=== PATIENT | female | born 1950 | race Caucasian/White ===

== ENCOUNTER → 2019-07-10 13:40 | Outpatient (CLI) | payer OTHER, SELFPAY ==
--- NOTE | 2019-07-10 | DI.MRI.S_ITS ---
PROCEDURE: MR LUMBAR SPINE WO CON INDICATIONS: Radiculopathy, lumbar region TECHNIQUE: Noncontrast sagittal T1 spin echo and T2 fast echo, sagittal STIR, axial T1 and T2 fast spin echo through the lumbar spine. In cases with scoliosis, additional coronal T2 fast spin echo may be performed. COMPARISON: None. FINDINGS: Image quality: Diagnostic, with note made of motion artifact. Alignment and Curvature: There is mild grade 1 anterolisthesis seen at L4-L5 and L5-S1. To the limits of this MRI, no associated pars defects can be seen. Bone Marrow: The bone marrow is diffusely heterogeneous, yet without a focally suspicious bone marrow lesions identified. No acute vertebral body compression fractures. Spinal Cord: Conus medullaris terminates at the T12-L1 level. Visualized cord demonstrates normal signal and size. Paraspinous Soft Tissues: No paravertebral masses. T11-T12: Mild to moderate loss of disc height and disc signal are seen. Mild generalized disc bulge is seen. No significant neural foraminal or central canal narrowing can be seen. T12-L1: Mild to moderate loss of disc height and disc signal are seen. Bridging endplate osteophytes are seen. There is at least moderate bilateral neural foraminal narrowing seen. No significant central canal narrowing is seen. L1-L2: The disc height and disc signal are well-preserved. Mild disc bulge is seen. There is [id number] bilateral neural foraminal narrowing seen. No significant central canal narrowing is seen. L2-L3: No significant abnormality is seen. L3-L4: The disc height and disc signal are relatively well-preserved. Mild generalized disc bulge is seen. No significant neural foraminal or central canal narrowing can be seen. L4-L5: The disc height is well-preserved. Loss of disc signal is seen at this level. Moderate generalized disc bulge is seen. Prominent facet hypertrophy is seen. There is moderate to severe bilateral neural foraminal narrowing seen. There is a degree of compression seen upon the exiting nerve roots. Moderate central canal narrowing is seen. L5-S1: Moderate loss of disc height is seen. Loss of disc signal is seen. Moderate generalized disc bulge is seen. Prominent facet hypertrophy is seen. There is moderate to severe bilateral neural foraminal narrowing seen, right worse than left. There is a degree of compression seen upon the exiting nerve roots. Moderate central canal narrowing is seen. IMPRESSION: Lumbar spine degenerative changes are seen, which are most prominent at L4-L5 L5-S1. Dictated by: Nader Ortiz M.D. on 07/10/2019 at 13:41 Approved by: Nader Ortiz M.D. on 07/10/2019 at 13:46
== END ==
PROVIDERS: PCP Family Medicine; Visit Provider Acupuncturist
DX: M47.26 Other spondylosis with radiculopathy, lumbar region (principal); M47.27 Other spondylosis with radiculopathy, lumbosacral region
CPT/HCPCS: 72148

== ENCOUNTER → 2021-04-28 12:35 | Outpatient (CLI) | payer MEDICARE, SELFPAY ==
--- NOTE | 2021-04-28 | DI.MRI.S_ITS ---
PROCEDURE: MR LUMBAR SPINE WO CON INDICATIONS: sciatica, left side TECHNIQUE: Noncontrast sagittal T1 spin echo and T2 fast echo, sagittal STIR, axial T1 and T2 fast spin echo through the lumbar spine. In cases with scoliosis, additional coronal T2 fast spin echo may be performed. COMPARISON: [facility], MR, MR LUMBAR SPINE WO CON, 07/10/2019, 13:52. FINDINGS: Image quality: Excellent. Alignment and Curvature: There is mild degenerative anterolisthesis of L4 on L5 measuring approximately 4 mm. There is grade 1 degenerative anterolisthesis of L5 on S1, measuring 7 mm. Bone Marrow: Marrow is of normal overall signal. No acute vertebral body compression fractures. Spinal Cord: Conus medullaris terminates at the L1 level. Visualized cord demonstrates normal signal and size. Paraspinous Soft Tissues: No paravertebral masses. T11-T12: Mild disc bulge. No canal stenosis or foraminal stenosis. T12-L1: Disc bulge. No central canal stenosis. Mild bilateral foraminal stenosis. L1-L2: Mild disc bulge. Facet hypertrophy. No canal stenosis or foraminal stenosis. L2-L3: No canal stenosis or foraminal stenosis. L3-L4: Mild disc bulge. Facet hypertrophy. No canal stenosis or significant foraminal stenosis. L4-L5: Exuberant facet hypertrophy. Unchanged mild degenerative anterolisthesis of L4 on L5. Posterior disc bulge. Moderate central canal stenosis, as before. Bilateral foraminal disc bulges. Left foraminal annulus tear. Moderate to severe bilateral foraminal narrowing as before, with mild flattening deformity on the exiting bilateral L4 nerve roots. L5-S1: Unchanged grade 1 anterolisthesis of L5 on S1 is likely degenerative in nature. Exuberant facet hypertrophy. A anterior medially directed left facet joint cyst contributes to left lateral recess stenosis. There is moderate to severe bilateral foraminal narrowing with flattening deformity on the exiting bilateral L5 nerve roots. IMPRESSION: 1. There is exuberant bilateral facet hypertrophy at L4-L5 and L5-S1. 2. Multifactorial canal stenosis is moderate at L4-L5 and L5-S1. 3. Bilateral moderate to severe foraminal stenosis at L4-L5 and L5-S1. Dictated by: Armando Hernandez M.D. on 04/28/2021 at 13:24 Approved by: Armando Hernandez M.D. on 04/28/2021 at 13:59
== END ==
PROVIDERS: PCP Internal Medicine; Referring Provider Internal Medicine; Visit Provider Internal Medicine
DX: M54.32 Sciatica, left side (principal); M48.061 Spinal stenosis, lumbar region without neurogenic claudication; M48.07 Spinal stenosis, lumbosacral region
CPT/HCPCS: 72148

== ENCOUNTER → 2021-11-09 11:47 | Outpatient (CLI) | payer MEDICARE, SELFPAY ==
--- NOTE | 2021-11-09 | DI.CT.S_ITS ---
PROCEDURE: CT CERVICAL SPINE WO CON INDICATIONS: Spinal stenosis, cervical region TECHNIQUE: Noncontrast 3 mm thick sections acquired from the skull base to the T4 level. Sagittal and coronal reformats were then constructed. For radiation dose reduction, the following was used: automated exposure control, adjustment of mA and/or kV according to patient size. COMPARISON: None. FINDINGS: Postsurgical changes C5-C7 ACDF with anterior plate and screws and interbody devices. There is abnormal lucency surrounding the screws at the C5, C6, and C7 levels, worrisome for loosening. The plate closely abuts the anterior margin of the vertebral bodies. The interbody devices appear to be in appropriate position. There is mature osseous fusion across the intervertebral disc spaces with seemingly good incorporation of the interbody devices. Straightening of the usual cervical lordosis. Anterolisthesis of C3 on C4 measuring 3 mm. Trace anterolisthesis of C7 on T1 measuring 1 mm. Vertebral body heights maintained. No suspicious osseous lesion. Regional soft tissues are within normal limits. At C2-C3, no spinal canal or neural foraminal stenosis. At C3-C4, moderate left and mild right neural foraminal stenosis due to facet and uncovertebral hypertrophy. No spinal canal stenosis. At C4-C5, mild spinal canal stenosis due to posterior disc osteophyte complex. Moderate right and mild left neural foraminal narrowing due to facet and uncovertebral hypertrophy. At C5-C6, no spinal canal or neural foraminal stenosis. At C6-C7, no spinal canal or neural foraminal stenosis. At C7-T1, no spinal canal or neural foraminal stenosis. IMPRESSION: Postsurgical changes of C5-C7 ACDF. Abnormal lucency surrounding the screws at the operative levels suggestive of possible loosening. Multilevel multifactorial degenerative changes with moderate neural foraminal narrowing on the left at C3-C4 and on the right at C4-C5 Dictated by: Noman Childress M.D. on 11/09/2021 at 12:22 Approved by: Noman Childress M.D. on 11/09/2021 at 12:26
== END ==
PROVIDERS: PCP Internal Medicine; Referring Provider Orthopaedic Surgery Orthopaedic Surgery of the Spine; Visit Provider Orthopaedic Surgery Orthopaedic Surgery of the Spine
DX: M48.02 Spinal stenosis, cervical region (principal); M47.812 Spondylosis without myelopathy or radiculopathy, cervical region; Z98.1 Arthrodesis status
CPT/HCPCS: 72125

== ENCOUNTER → 2022-01-12 09:59 | Outpatient (CLI) | payer MEDICARE, SELFPAY ==
--- NOTE | 2022-01-12 10:13 | DI.CT.S_ITS ---
PROCEDURE: CT LUMBAR SPINE WO CON INDICATIONS: Spinal stenosis, lumbar region with neurogenic claudication TECHNIQUE: Noncontrast 3 mm thick sections acquired from the T12 level to the sacrum. Sagittal and coronal reformats were constructed. For radiation dose reduction, the following was used: automated exposure control. COMPARISON: [facility], MR, MR LUMBAR SPINE WO CON, 04/28/2021, 12:52. FINDINGS: Image quality: Excellent. Bones: There is normal bony alignment. No acute vertebral body compression fractures. No suspicious lytic or blastic bony lesions. No pars defects. T12-L1: Endplate degenerative changes and subtle retrolisthesis. Diffuse disc bulge with no significant foraminal or central canal stenosis. L1-L2: No significant disc bulge. The foramina and central canal are patent. L2-L3: No significant disc bulge. The foramina and central canal are patent. L3-L4: No significant disc bulge. The foramina and central canal are patent. L4-L5: Facet arthrosis with 9 mm anterolisthesis. Diffuse disc bulge causes mild bilateral foraminal stenosis. The central canal has mild stenosis measuring 8 mm AP. L5-S1: Facet arthrosis with 7 mm anterolisthesis. Diffuse disc bulge causes mild bilateral foraminal stenosis. The central canal has mild stenosis measuring 8 mm AP. Soft tissues: Moderate-sized hiatal hernia. Diverticulosis without evidence of diverticulitis. No retroperitoneal masses or hematomas. Visualized aorta is normal in caliber. IMPRESSION: 1. Facet arthrosis and anterolisthesis of L4-5 and L5-S1 as above. 2. Mild central canal stenosis at L4-5 and L5-S1. Dictated by: Nelson Goodwin M.D. on 01/12/2022 at 11:54 Approved by: Nelson Goodwin M.D. on 01/12/2022 at 11:59
== END ==
PROVIDERS: PCP Internal Medicine; Referring Provider Orthopaedic Surgery Orthopaedic Surgery of the Spine; Visit Provider Orthopaedic Surgery Orthopaedic Surgery of the Spine
DX: M48.062 Spinal stenosis, lumbar region with neurogenic claudication (principal); M48.07 Spinal stenosis, lumbosacral region; M47.816 Spondylosis without myelopathy or radiculopathy, lumbar region; M47.817 Spondylosis without myelopathy or radiculopathy, lumbosacral region
CPT/HCPCS: 72131

== ENCOUNTER → 2022-01-12 13:09 | Outpatient (CLI) | payer MEDICARE, SELFPAY ==
[2022-01-12 15:54] LABS: COVID19 -Nasal RAPID Negative (Negative)
== END ==
PROVIDERS: PCP Internal Medicine; Visit Provider Family Medicine Sleep Medicine
DX: Z01.812 Encounter for preprocedural laboratory examination (principal); Z20.822 Contact with and (suspected) exposure to COVID-19
CPT/HCPCS: 87635; C9803

== ENCOUNTER 2022-01-13 08:44 | Inpatient (IN) | payer MEDICARE, SELFPAY ==
[2022-01-03 12:58] VITALS: BMI 27.3
[2022-01-13] VITALS (13 sets, daily range): BP systolic 101–129; BP diastolic 42–78; PULSE 62–108; RESP 12–17; TEMP 35.7–37; O2SAT 94–99; BMI 27.3
[2022-01-13] MEDS: LACTATED RINGERS 1,000 ML 42 ML IV ×2 (09:09→12:51)
[2022-01-13] MEDS: ACETAMINOPHEN 325 MG TABLET 975 MG PO (09:12)
[2022-01-13] MEDS: GABAPENTIN 300 MG CAPSULE PO (09:12)
--- NOTE | 2022-01-13 10:06 | PM.PREOP ---
Pre-operative Note COVID-19 COVID-19 status: Negative Result date/Date tested (Pos, Neg/Pending): 01/12/22 Criteria for continued procedure: Expected advancement of disease process, Possibility delay results in more complex future surgery or treatment, Increased loss of function, Continuing or worsening of significant or severe pain, Deterioration of the patient's condition or overall health and Delay expected to result in less-positive ultimate med/surg outcome Interval Note History & Physical reviewed/Exam performed by Physician: Yes Changes to H&P: No
--- NOTE | 2022-01-13 10:34 | SUR.OPER ---
Prone on spine table, head in foam head support, padded chest and pelvic supports, gel pad at knees, lower legs supported by pillows; nipples, genitalia and toes free of pressure, arms secured on foam padded arm boards at <90 degrees abduction. Tape over blanket at thigh secured to table.
[2022-01-13] MEDS: CEFAZOLIN 2 GM/20 ML SYRINGE IV (11:00)
[2022-01-13] MEDS: BUPIVACAINE 0.25% (PF) 60 ML, EPINEPHrine 0.3 MG INJ (11:25)
[2022-01-13] MEDS: BUPIVACAINE LIPOSOME 266 MG/20 ML VIAL INJ (11:25)
--- NOTE | 2022-01-13 14:46 | DI.RAD.S_ITS ---
PROCEDURE: XR LUMBAR SPINE 2-3V INDICATIONS: L4-5, L5-S1 TLIF TECHNIQUE: 2 intraoperative fluoroscopic views of the lumbar spine were acquired. COMPARISON: None. FINDINGS: Intraoperative fluoroscopic images shows posterior fusion at L4 through S1 levels with intervertebral spacer placement at L4-5 and L5-S1 levels. IMPRESSION: Fluoro guidance was provided intraoperatively for posterior fusion at L4 through S1 levels. Dictated by: Maurice Loera M.D. on 01/13/2022 at 14:58 Approved by: Maurice Loera M.D. on 01/13/2022 at 15:05
--- NOTE | 2022-01-13 15:05 | PM.OP.1 ---
Operative Date/Time/Diagnoses Date of procedure: 01/13/22 Time of procedure: 11:00 Pre-op diagnosis: 1. L4-5, L5-S1 spondylolisthesis 2. L4-5, L5-S1 spinal stenosis Post-op diagnosis: same Procedure & Clinicians Procedure: 1. L4-5, L5-S1 Postero-lateral and posterior interbody fusion 2. L4-5, L5-S1 interbody cage placement. 3. L4-5, L5-S1 decompressive laminectomy with bilateral facetecomies 4. L4-5, L5-S1 Posterior segmental instrumentation 5. [place] of bone marrow from iliac crest 6. Utilization of microsurgical technique and operating microscope 7. Utilization of robotic assisted navigation Same procedure as scheduled: Yes Indications: Patient has been having chronic back pain and worsening lumbar radiculopathy due to spondylolisthesis and foraminal stenosis L4-5 L5-S1 level. Patient failed multiple conservative management with worsening pain weakness and numbness in her lower extremity. Patient has been having difficulty performing activity of daily living. After discussing risks benefits of treatment options, patient elected proceed with surgery. Surgeon: Leslie Artis [facility] Archivist: Caprice Gonsalez Click Yes if Unassisted: No Anesthesia Type: General Operative Notes Closure Type: primary Specimen(s): none sent Prosthetic devices, grafts, tissues, transplants, or devices: Globus CREO MIS screw, Rise cages Applied: catheter Estimated Blood Loss (mL): 100 Blood products transfused: none Procedure in detail: Patient was seen in the preoperative area. Risks and benefits of the surgery was discussed with the patient. Informed consent was obtained from the patient and placed in the chart. Surgical site was marked. Patient was taken to the operative room. General anesthesia was administered. Prophylactic antibiotic was given to the patient less than 30 min before the incision was made. Patient was placed into a prone position on the Jono table. Patient's back was then prepped and draped in the sterile fashion. Time-out was performed at this time. After patient was prepped and draped, patient's PSIS was palpated and marked bilaterally. Small 1 cm incision was made over the PSIS for placement of the reference probes. Two trocar was placed into the PSIS 1 on each side. The reference probe was attached to the trocar of the reference apparatus. At this time the C-arm imaging was used to confirm AP and lateral of L4-L5, L5-S1 vertebrae and merged the C-arm imaging using the Rodati robotic navigation system with the CT of the lumbar spine. After successful merging was completed and confirmed, skin marker was used to ayana out the skin incision using the Rodati robotic arm. Bilateral incision was made at this time. Pre templated trajectory was used and guided using the Rodati robotic navigation system for bilateral L4, L5, S1 pedicle screw placement. This was done by using the robotic arm to guide the high-speed bur to make a cortical entry point. Next a drill was placed also using the robotic arm and guided using the navigation system drilling partially through bilateral L4, L5 and S1 pedicles. Next L4, L5, S1 pedicle screws it was pre templated and measured was placed onto the power power screwdriver operator and inserted into the pedicles bilaterally. After all 6 screws were placed C-arm imaging was taken of both AP and lateral to confirm the placement. Excellent placement of the screws were confirmed and a matched precisely with the pre planned screw placement using the navigation system. MARs retractor was inserted using MightyMeetingivation guidence. Globus MARS retractors was placed inside the incision and docked onto the L4 and L5 lamina. Using microsurgical technique and operating microscope, a L4, L5 laminectomy and L4-5, L5-S1 facetectomy was performed using a Kerrison rongeur. Patient was found have severe lateral recess and neural foramen stenosis which was fully decompressed after the laminectomy facetectomy. More than 75% of the facets were removed during the process of decompression rendering L4-5, L5-S1 level grossly unstable and required a fusion procedure at the same time. The disc space at L4-5, L5-S1 was identified, and a total diskectomy was performed at L4-5, L5-S1 level. The endplates were decorticated using a rasp and shaver. The total diskectomy and decortication was performed at L4-5, L5-S1 level in order to to accomplish a L4-5, L5-S1 fusion. The local bone from the laminectomy and facetectomy was saved for local bone grafting. After the total diskectomy and decortication was completed, Trifecta bone graft material was combined with local bone that was harvested earlier. There was a small dural defect encountered after cage placement on the left side of L4-5 disc interval. Duragen and Tissel was placed to patch the dural defect. There was no visible CSF leakage after the patch was completed. At this time, a separate skin is incision was made over the iliac crest. A Jamshidi needle was inserted into the iliac crest through a separate skin incision. 5 cc of bone marrow aspiration was obtained through the separate skin incision using a Jamshidi needle from the iliac crest. The bone marrow aspiration was combined with local bone and the Trifecta bone grafting material. The bone grafting material was placed into the L4-5, L5-S1 interbody space along with a expandable cage. The cage was expanded to its maximum height using the torque limiting screwdriver. The disc preparation as well as the cage insertion were also performed under navigation guidance. After the cage was placed, AP and lateral C-arm imaging was taken to confirm placement of the cage and excellent position was confirmed. Globus MARS retractor was inserted and docked onto the L4-5, L5-S1 posterolateral gutter on the right side. Using the power drill, posterior-lateral decortication was performed at L4-5, L5-S1 level until bleeding cortical bone was identified. The remaining bone grafting material was placed into the L4-5, L5-S1 posterior lateral gutter he order to accomplish posterolateral fusion at the L4-5, L5-S1 level. At this time the tulips were attached to the L4, L5, S1 pedicle screw shanks. After measuring the length of the rods, they were inserted into the tulips of the pedicle screws and locked in place using locking caps and torque limiting screwdriver bilaterally. Total 6 caps and 2 titanium rods was used in order to complete the posterior instrumentation construct. After all the hardware was placed, and confirmed with AP and lateral C-arm imaging, the wound was then irrigated with sterile normal saline and packed with Ray-Asif gauze for 3 min to accomplish hemostasis. After the gauze was removed the deep fascia was closed with #1 Vicryl suture. The subcutaneous layer was closed with 2-0 Vicryl. The skin was closed with skin lit. Patient tolerated the procedure well. There were no complications. Neuro monitoring system was used to monitor patient's neurologic status throughout entire procedure. There was no disturbance of the neural monitoring signals throughout the case. Complications: none Post-operative Condition: stable Disposition: PACU Plan for aftercare: Admit to inpatient hospital
[2022-01-13] MEDS: HYDROMORPHONE 2 MG INJ IV (15:25)
[2022-01-13] MEDS: OXYCODONE IR 5 MG TABLET PO (15:26)
[2022-01-13] MEDS: ONDANSETRON 4 MG/2 ML INJ IV (15:28)
[2022-01-13] MEDS: SODIUM CHLORIDE 0.9% 1,000 ML 100 ML IV (16:22)
--- NOTE | 2022-01-13 19:22 | PC.NURSE ---
Pt is AxOx4 but very sleepy when she arrived to the unit. VSS, pt stated pain is tolerable 2/10 and no pain med needed. Hernandez is draining clear and yellow urine. Dressing on back C/D/I and sensation is intact. Pt had no appetite so did not eat dinner. Pt has cont IV running 100 ml/hr. No other changes.
[2022-01-13] MEDS: CEFAZOLIN 1 GM VIAL IV (20:37)
[2022-01-13] MEDS: DOCUSATE 100 MG CAPSULE PO (20:37)
[2022-01-13] MEDS: FAMOTIDINE 20 MG TABLET PO (20:38)
[2022-01-13] MEDS: GABAPENTIN 400 MG CAPSULE PO (20:38)
[2022-01-13] MEDS: ATORVASTATIN 20 MG TABLET PO (20:38)
[2022-01-13] MEDS: SENNOSIDES 8.6 MG TABLET 17.2 MG PO (20:38)
[2022-01-13] MEDS: OXYCODONE IR 5 MG TABLET 10 MG PO (21:25)
[2022-01-13] MEDS: hydrOXYzine pamoate 25 MG CAPSULE PO (21:26)
[2022-01-13] MEDS: MINERAL OIL/PETROL OPHTH OINT 3.5 GM 1 APPLIC EYE-LEFT (23:10)
[2022-01-14] VITALS (8 sets, daily range): BP systolic 82–104; BP diastolic 33–52; PULSE 72–85; RESP 14–17; TEMP 36.4–37.7; O2SAT 97–99
[2022-01-14] MEDS: SODIUM CHLORIDE 0.9% 1,000 ML 100 ML IV (02:59)
[2022-01-14] MEDS: CEFAZOLIN 1 GM VIAL IV (02:59)
[2022-01-14] MEDS: OXYCODONE IR 5 MG TABLET 10 MG PO ×4 (03:03→21:55)
[2022-01-14] MEDS: hydrOXYzine pamoate 25 MG CAPSULE PO (03:03)
[2022-01-14 05:57] LABS: Hematocrit 29.2 % (36-46); Hemoglobin 9.9 g/dL (12.0-16.0)
[2022-01-14] MEDS: FLUoxetine 20 MG CAPSULE 40 MG PO (08:38)
[2022-01-14] MEDS: DOCUSATE 100 MG CAPSULE PO ×2 (08:38→21:55)
--- NOTE | 2022-01-14 09:20 | PM.PNPO.1 ---
Subjective Subjective Date Patient Seen: 01/14/22 Time Patient Seen: 09:21 Interval history: Patient is complaining of moderate low back pain this morning. She is also having some dizziness after the head of her bed was elevated to eat and now playing a puzzle. She had a dural tear intraoperatively. She denies any numbness or tingling. Exam Vital Signs (past 8 hours): - 01/14/22 03:04 01/14/22 07:45 Temperature 97.5 F L 98 F Pulse Rate 80 72 Respiratory Rate 16 14 Blood Pressure 104/52 L 99/49 L Pulse Oximetry 98 99 Oxygen Delivery Method Nasal Cannula Oxygen Flow Rate 1 Narrative Exam Narrative: 71-year-old female, resting comfortably in bed, no acute distress. Dressing is clean, dry, intact. Bilateral lower extremity: Motor functions are grossly intact, sensation is color grossly intact to light touch, calves are soft and nontender to palpation. Head of the bed is elevated at approximately 30?. Objective Labs Result Diagrams: 01/14/22 05:25 Labs: Laboratory Results - last 24 hr 01/14/22 05:25 Hgb 9.9 L Hct 29.2 L PFSH Medical History Depression Diverticulitis GI bleed (04/2021) Heartburn HLD (hyperlipidemia) IBS (irritable bowel syndrome) PVC's (premature ventricular contractions) RLS (restless legs syndrome) Sciatica Skin cancer Spinal stenosis Surgical History History of bilateral tubal ligation (1984) Hx of appendectomy (1959) Hx of bilateral cataract extraction Hx of fusion of cervical spine (2014) Hx of tonsillectomy (1962) Social History household members: spouse Smoking Status: Never smoker alcohol intake: current Assessment & Plan Post-op Postoperative Procedures: Procedures Operation Date: 01/13/22 10:15 Actual Procedure Side Surgeon p L4-5, L5-S1 TLIF w. posterior instrumentation - Robot Leslie Artis MD Postoperative day: 1 Postoperative status narrative: -status post L4-5, L5-S1 TLIF -intraoperative dural tear -acute blood loss anemia Postoperative plan narrative: -plan is to start sitting up as tolerated, based on dizziness and lightheadedness and headaches. If she is able to sit up, can transition to standing and walking as tolerated. Hopefully we will get her mobilized with physical therapy today -remove Hernandez catheter when she can tolerate being out of bed -continue to monitor H&H for her acute blood-loss anemia -continue with multimodal pain management -disposition: Likely home in 1-3 days, depending on dural tear symptoms resolving and pain management. Quality VTE Deep Vein Thrombosis/Pulmonary Embolism Present on Admission: No
--- NOTE | 2022-01-14 09:25 | PT.IIE ---
Current Diagnoses Spondylolisthesis, lumbar region (01/13/22) Spinal stenosis, lumbar region with neurogenic claudication (01/13/22) Surgery Performed Operation Date: 01/13/22 10:15 Actual Procedures p L4-5, L5-S1 TLIF w. posterior instrumentation - Robot - Leslie Artis MD Medical History (Last Reviewed 01/14/22 @ 09:22 by Мария Ceja PA-C) Depression Diverticulitis GI bleed (04/2021) Heartburn HLD (hyperlipidemia) IBS (irritable bowel syndrome) PVC's (premature ventricular contractions) RLS (restless legs syndrome) Sciatica Skin cancer Spinal stenosis Physical Therapy Inpatient Evaluation/Re-Eval M1 PT/OT-IP Prior Functional Status Start: 01/14/22 11:21 Freq: NEEDED Status: Active Protocol: Document 01/14/22 09:25 AB (Rec: 01/14/22 11:30 AB [id number]) Medical Review Prior Functional Status Medical History Reviewed Yes Communication able to make needs known Mobility and Gait pt stated that she is independent with all mobilities and ambulation without AD Social History Household Members spouse Living Arrangements House Number of Floors (Floors) One Floor Number of Stairs To Enter/Railing? no steps to enter Home Environment High Toilet,Walk in Shower, Built-In Shower Seat Home Equipment Front Wheel Walker,Hand Held Shower Employment Status Retired M2 PT-IP Current Condition Start: 01/14/22 11:21 Freq: NEEDED Status: Active Protocol: Document 01/14/22 09:25 AB (Rec: 01/14/22 11:30 AB [id number]) Physical Therapy Current Condition Current Condition Evaluation Date 01/14/22 Treatment Diagnosis s/p L4-5,L5S1 TLIF; difficulty in walking Onset Date 01/13/22 M3 PT-IP Subjective Start: 01/14/22 11:21 Freq: NEEDED Status: Active Protocol: Document 01/14/22 09:25 AB (Rec: 01/14/22 11:30 AB [email or web address]) Subjective Physical Therapy Visit Type Type Initial Evaluation Visit Start Time 09:25 Visit Stop Time 10:10 Total Visit Minutes 45 Number of TAKER DOWN Visits 0 Physical Therapy Visit Comments Patient Comments agreeable to do PT Therapy Pain Assessment Pain When Pain Assessed At Rest Pain Present Pain Present Pain Reported Location back Intensity 4 Scale Used Numeric (0 - 10) M4 PT-IP Mobility and Gait Start: 01/14/22 11:21 Freq: NEEDED Status: Active Protocol: Document 01/14/22 09:25 AB (Rec: 01/14/22 11:30 AB [id number]) PT-Bed Mobility Assessment Rolling Type of Rolling Log Rolling Supine to Sit Supine to Sit Minimal Assistance PT-Transfer Assessment Sit to and From Stand Sit to and from Stand Minimal Assistance,1 Person Assistance,Use of Upper Extremities Equipment Transfer Assistive Device Gait Belt,Front Wheeled Walker Orthotic/Prosthetic Devices or Brace: No Transfers Transfer Destination Chair Transfer Technique Stand Step Pivot Transfer Ability Level of Assist Minimal Assistance,Use of Upper Extremities Comments Mobility Comments BP supine: 101/45. educated on back precautions and log roll bed mobility. pt completed supine to sit min A and cues. able to sit on EOB SBA. BP: 117/51. pt with initial complaints of feeling oozy but decreased. BP checked after ~ 3 min : 112/53 . completed sit to stand min A and cues and step transfer to chair using FWW min A. BP checked after transfer: 114/50 . pt agreed to ambulate and completed ~ 10 ft using FWW min A and cues. agreed to sit on the chair. positioned on the chair. call light and table placed within reach. BP at end of tx session: 96/42. Gait Assessment Gait Gait Assistance Required: Minimum Assistance Distance (Feet) 10 Able to Maintain Weight Bearing Status Yes During Gait Assistive Devices Assistive Device Gait Belt,Front Wheeled Walker Orthotic/Prosthetic Devices or Brace: No Gait Deviations General Gait Pattern Decreased Stride Length, Decreased Feet Clearance,Step- to Gait Factors Limiting Gait Function Factors Limiting Gait Function Decreased Activity Tolerance, Decreased Strength,Limited Range of Motion,Pain,Poor Balance,Poor Safety Awareness PT-Balance Assessment Sitting Balance and Reactions Static Sitting Balance Ability Good Dynamic Sitting Balance Ability Good Standing Balance and Reactions Static Standing Balance Ability Fair Dynamic Standing Balance Ability Fair Device Used FWW M5 PT-IP Objective Assessments Start: 01/14/22 11:21 Freq: NEEDED Status: Active Protocol: Document 01/14/22 09:25 AB (Rec: 01/14/22 11:30 [email or web address]) Orientation Orientation/Cognition Level of Alertness Alert Orientation Name,Place,Situation Safety Awareness Understands Safety Issues Memory Description No Deficits Noted Gross Range of Motion Lower Extremity ROM Assessment Within Functional Limits Strength Lower Extremity Strength Hip 4-/5 Knee 4-/5 Coordination Assessment Gross Coordination Gross Coordination WNL Sensation Assessment Sensation Gross Sensation WNL Muscle Tone Muscle Tone WNL Yes M6 PT-IP Treatment Start: 01/14/22 11:21 Freq: NEEDED Status: Active Protocol: Document 01/14/22 09:25 AB (Rec: 01/14/22 11:30 AB [id number]) Physical Therapy Treatment Education Education Provided Precautions,Weight Bearing Status,Post-Op Packet,Safety M7 PT-IP Assessment and Plan Start: 01/14/22 11:21 Freq: NEEDED Status: Active Protocol: Document 01/14/22 09:25 AB (Rec: 01/14/22 11:30 AB [email or web address]) PT Summary Assessment and Plan Potential Rehabilitation Potential Good Status of Condition at Evaluation Evolving Summary Impairments Pain,ROM,Strength,Balance, Coordination,Sensation,Tone, Cognition,Bed Mobility, Transfers,Gait,Activity Tolerance Assessment Summary pt requiring min A with mobility and was not able to tolerate much activity. pt with dural tear from surgery yesterday with BP stable but on the low side. will continue to assess progress. pt plans to go home and spouse to assist her. will conduct caregiver training when appropriate. Goals Bed Mobility Goal Independent Transfer Goal Independent,Front Wheeled Walker Gait Goal Independent,Front Wheel Walker Gait Distance 200 Days to Meet Goals 5 Frequency of Treatment Frequency Of Treatment Twice a Day Treatment Plan Physical Therapy Treatment Plan Bed Mobility Training,Transfer Training,Gait Training, Therapeutic Exercise,Balance Retraining,Post Op Education, Discharge Planning,Hot or Cold Pack,Neuromuscular Re-ed, Coordination Retraining,Manual Therapy Precautions Lumbar Precautions Log Roll,No Twisting,Limit Bending,Lifting Restriction of 10 lbs,Gait Belt above Incisional Area Recommendations To Nursing Amount of Assist Needed 1 Person Assist Discharge Recommendations PT Discharge Recommendations Home with Assistance Transportation Needs at Discharge Private Vehicle
--- NOTE | 2022-01-14 10:26 | CM.DANOTE ---
DCP: Case received, EMR reviewed and met with patient. Introduced self and role. Was able to obtain information regarding patient's baseline activity status prior to her surgery. DCP assessment completed with information currently available. Patient is a 71 year old female who admitted yesterday to the care of the orthopedic team. PCP: Dr. Rodriguez Payer: confirmed: [facility]. Patient came to the hospital via private vehicle for a surgical procedure. Patient had L4-5, L5-S1 postero-lateral and posterior interbody fusion. Patient has history of spondyloisthesis/spinal stenosis. Met with patient in her room. She is alert and oriented. She resides in [place] with her spouse, Carrillo. She is independent at her baseline, has FWW. She stated her should be able to assist her when she goes home. Ortho PAC, Мария Ceja, gave update, patient has had dural tear, may be here until Monday. She may not be able to work with P.T. today. P: DCP to continue to follow closely. Will see how she does with P.T. when she is able to work with them. Ivonne Valiente RN/Sociology Faculty Member Discharge Planning/Care Management CM Discharge Assessment Start: 01/14/22 10:23 Freq: Status: Active Protocol: Document 01/14/22 10:23 (Rec: 01/14/22 10:26 [id number]) Discharge Planning Assessment Assigned Amortization Clerk Ivonne Valiente RN/Sociology Faculty Member Advance Directives? Yes Advance Directives on File No History Provided By Patient,Medical Record Prior Living Arrangements House Household Members spouse Type of transporation used prior to Drives own vehicle admit Independent with ADL's Yes Is patient alert and oriented? Yes Caregiver for Another No DME Already Rented / Owned FWW / Walker Comment Will see how patient does with P.T, has had dural tear. Discharge Plan Home Transportation Arrangement Spouse Referrals Initiated Other Additional Comment Will see how patient does with P.T. Whiteboard Updated in Patient Room with Yes name and ext. # of Amortization Clerk Review Status In Process Next Review Type Continued Stay Review Pre-Anesthesia Assessment Start: 01/03/22 12:58 Freq: Status: Complete Protocol: Document 01/03/22 12:58 CAB (Rec: 01/03/22 13:24 CAB [id number]) Pre-Anesthesia Assessment Preferred Name Nika Patient Information Reviewed Via Phone Assessment Assessment Completed With Patient H&P Completed Within 30 Days No: Not identified at time of assess Diagnostic Results BMP/CMP,CBC,EKG Comment Outside labs/ECG scanned, COVID screen @ [facility] 01/12/22 Primary Care Provider Austin Rodriguez Seen Specialist in Last 12 Months Yes Specialist Seen Regional Sales Coordinator,Orthopedist Primary Language Kazakh Supervisor Roller Printing Required No Height 5 ft 1 in Weight 145 lb Body Mass Index (BMI) 27.3 Hearing Ability Normal Visual Impairment No Limitations Visual Assist None Dentition Type Teeth, Natural Present Barriers to Learning None Hx Anesthesia Reactions No Hx Family Anesthesia Reaction No Hx Malignant Hyperthermia No Hx Blood Transfusions Yes: GI Bleed 2020 Hx Blood Transfusion Reaction No Anesthesia Review Requested No alcohol intake current alcohol intake frequency holidays/special occasions only Smoking Status Never smoker Substance Use Type does not use Pain Present Pain Reported Musculoskeletal Symptoms Abnormal Gait,Back Pain, Difficulty Walking,Muscle Weakness,Numbness,Radiating Pain into Limb,Tingling History of Falling (Recent or History of Yes ) Patient is completely paralyzed or No completely immobile Mental Status Oriented to own ability Is patient on oxygen? No Does patient have DUENAS/SOB No Hx Sleep Apnea No Currently Taking a Beta Vania No Hx Chest Pain No Hx SOB No Hx Syncope or Dizziness No Anti-Coagulant Therapy No Has a Appeals Board Referee No Cardiac Testing No Hx Pacemaker/ICD No Pacemaker Rep Required? No Cardiac Clearance Received Not Applicable Diet Type At Home Regular dysphagia No Gastrointestinal Symptoms Abdominal Pain,Bloating, Constipation,Diarrhea,Reflux Urinary Catheter Present No Hx Urinary Self Catheterization No Diabetes No Patient No Lactating No Presence of External or Internal Medical Yes: Cervical hardware, bilat Devices eye IOLs Have you had any close contact with No someone diagnosed with COVID-19? Received a COVID vaccine? Yes Received all doses? Yes Marital Status Lives With spouse Prior Living Arrangements House Number of Floors (Floors) One Floor Support System Spouse Does the Patient Have Assistance After Yes Surgery Patient Discharge Plan Description Return Home Comment Pt not advised on length of stay per surgeon Feels Safe in Current Environment Yes Been Physically Hurt or Threatened By a No Person in Current Environment Do you have thoughts of harming yourself None or others? Are you currently considering suicide? No Do you have a plan to hurt yourself or No Plan others? Do You Have Any Spiritual Beliefs That No May Affect Your HC Choices? Do You Have Any Cultural Practices That No May Affect Your HC Choices? Comment [facility] Who Can We Speak to About Patient's Care Family, friends Identifying Code for Release of Patient Declines to issue Information Health Care Proxy/Next of Kin Carrillo () Health Care Proxy Emergency Contact Name Carrillo () Emergency Contact Advance Directives? Yes Advance Directives on File No Requested Patient Bring Advanced Yes Directives DOS Power of Laundry Laborer Yes Power of Laundry Laborer Name Carrillo () Power of Laundry Laborer PAC Instructions Durable medical equipment, Medications to take/avoid, Nasal antibiotic,No ETOH/ petroleum product on skin DOS, NPO,Post-op transportation,Pre -surgical wash,Sensory aids, Sturdy shoes/comfortable clothes,Do not bring valuables and remove jewelry
[2022-01-14] MEDS: ACETAMINOPHEN 325 MG TABLET 650 MG PO (13:47)
--- NOTE | 2022-01-14 14:45 | PT-IP ANOTE ---
Attempted to see pt at 14:45, pt refused PT c/o of headache and wanting to rest. Will check on pt tomorrow.
--- NOTE | 2022-01-14 14:45 | OT.IPNOTE ---
Attempted to see pt for OT eval, pt states very tired, having lower BP as nursing aid present , and states has a headache 6/10 however not wanting any medications and wanting to sleep. To check on pt tomorrow for OT eval.
[2022-01-14] MEDS: SODIUM CHLORIDE 0.9% 500 ML IV (16:07)
--- NOTE | 2022-01-14 18:12 | PC.NURSE ---
Pt is AxOx4 and needs 1 per/assistance and cooperative. VSS except BP has been soft all day: last one : , is called and recieved 500ml NS Bolus order. Pt recieved that Bolus around 1600. Pt is eating well and relaxing. Pt c/o pain on back and recieved Oxy twice today. Last one was given around 1330 with good effect. Hernandez is draining light, yellow urine output. Pt worked with PT in the morning and refused in the afternoon due to feeling tired. HH-9.9/29.2. Otherwise, dressing on back C/D/I. No other changes.
[2022-01-14] MEDS: ATORVASTATIN 20 MG TABLET PO (21:54)
[2022-01-14] MEDS: FAMOTIDINE 20 MG TABLET PO (21:55)
[2022-01-14] MEDS: SENNOSIDES 8.6 MG TABLET 17.2 MG PO (21:55)
[2022-01-14] MEDS: GABAPENTIN 400 MG CAPSULE PO (21:55)
[2022-01-15 05:13] VITALS: BP 113/55; PULSE 79; RESP 16; TEMP 37.1; O2SAT 93
[2022-01-15] MEDS: OXYCODONE IR 5 MG TABLET 10 MG PO ×3 (05:18→14:04)
[2022-01-15 06:43] LABS: Hemoglobin 10.2 g/dL (12.0-16.0)
[2022-01-15 07:40] VITALS: BP 98/51; PULSE 79; RESP 14; TEMP 36.6; O2SAT 92
[2022-01-15] MEDS: FLUoxetine 20 MG CAPSULE 40 MG PO (08:31)
[2022-01-15] MEDS: DOCUSATE 100 MG CAPSULE PO (08:31)
--- NOTE | 2022-01-15 08:34 | P.PN_ITS ---
Subjective Subjective Date Patient Seen: 01/15/22 Time Patient Seen: 08:35 Interval history: Lying in bed w/ HOB about 10 degrees. C/o mild FARIA relieved w/ pain medication. She was OOB w/ PT yesterday and had HOB raised several times throughout the day. We discussed the nature of dural tear and repair and what mean by 'positional headache,' ie, a headache that seems to start/be worsened by sitting upright or standing and is relieved by lying down. She says she was up and down too much yesterday to be able to tell whether her FARIA was positional in nature, but she will be more cognizant of it today. She would like to go home tomorrow if she progresses adequately w/ PT today and there is no sign of continued CSF leak. She complains of pain about her incisions and denies leg pain. Exam Vital Signs (past 8 hours): - 01/15/22 05:13 01/15/22 07:40 Temperature 98.8 F 97.8 F Pulse Rate 79 79 Respiratory Rate 16 14 Blood Pressure 113/55 L 98/51 L Pulse Oximetry 93 92 Oxygen Delivery Method Room Air Oxygen Flow Rate 0 Narrative Exam Narrative: 5/5 strength in hip flexors, quadriceps, hamstrings, DF, PF, EHL bilaterally. Sensation to light touch intact throughout BLE. Calves soft, compressible, nontender and without palpable cords or masses. Low back dressing placed intraoperatively has some old bloody drainage on the left inferior portion. There is no clear drainage from the incisions. There is no swelling that would suggest a subcutaneous fluid collection. Objective Labs Result Diagrams: 01/15/22 06:10 Labs: Laboratory Results - last 24 hr 01/15/22 06:10 Hgb 10.2 L Hct 30.0 L PFSH Medical History Depression Diverticulitis GI bleed (04/2021) Heartburn HLD (hyperlipidemia) IBS (irritable bowel syndrome) PVC's (premature ventricular contractions) RLS (restless legs syndrome) Sciatica Skin cancer Spinal stenosis Surgical History History of bilateral tubal ligation (1984) Hx of appendectomy (1959) Hx of bilateral cataract extraction Hx of fusion of cervical spine (2014) Hx of tonsillectomy (1963) Social History household members: spouse Smoking Status: Never smoker alcohol intake: current Assessment & Plan Post-op Assessment and plan (1) Status post lumbar spinal fusion: Assessment and Plan narrative: Hernandez out, PT today. Hopefully home tomorrow if there are no signs/symptoms rel ated to CSF leak. She does have some low blood pressures recorded, so I will give her a bolus of NS now. (2) Dural tear: Assessment and Plan narrative: Dural tear repaired intraoperatively. Pt having headaches, but due to frequent positional changes, difficulty to assess whether these are postural in nature. If pt has FARIA today that is brought on and worsened by sitting up or standing and resolves within minutes of lying flat, return pt to bedrest/flat for 12 hours. If no positional FARIA, can d/c tomorrow. Her dressing is dry and there appears to be no fluid collection, so my suspicion for continued CSF leak is low. Postoperative Procedures: Procedures Operation Date: 01/13/22 10:15 Actual Procedure Side Surgeon p L4-5, L5-S1 TLIF w. posterior instrumentation - Robot Leslie Artis MD Postoperative day: 2 Quality VTE Deep Vein Thrombosis/Pulmonary Embolism Present on Admission: No
[2022-01-15] MEDS: SODIUM CHLORIDE 0.9% 1,000 ML 1000 ML IV (09:38)
--- NOTE | 2022-01-15 09:38 | OT.IP.EVAL ---
Current Diagnoses Dural tear (01/13/22) Spondylolisthesis, lumbar region (01/13/22) Spinal stenosis, lumbar region with neurogenic claudication (01/13/22) Arthrodesis status (01/13/22) Surgery Performed Operation Date: 01/13/22 10:15 Actual Procedures p L4-5, L5-S1 TLIF w. posterior instrumentation - Robot - Leslie Artis MD Past Medical History (Last Reviewed 01/14/22 @ 09:22 by Мария Ceja PA-C) Depression Diverticulitis GI bleed (04/2021) Heartburn History of bilateral tubal ligation (1984) HLD (hyperlipidemia) Hx of appendectomy (1959) Hx of bilateral cataract extraction Hx of fusion of cervical spine (2014) Hx of tonsillectomy (1962) IBS (irritable bowel syndrome) PVC's (premature ventricular contractions) RLS (restless legs syndrome) Sciatica Skin cancer Spinal stenosis Surgical History (Last Reviewed 01/14/22 @ 09:22 by Мария Ceja PA-C) History of bilateral tubal ligation (1984) Hx of appendectomy (1959) Hx of bilateral cataract extraction Hx of fusion of cervical spine (2014) Hx of tonsillectomy (1962) Occupational Therapy Inpatient Evaluation/Re-Eval M1 PT/OT-IP Prior Functional Status Start: 01/14/22 11:21 Freq: NEEDED Status: Active Protocol: Document 01/15/22 09:05 [facility] (Rec: 01/15/22 10:50 [facility] [id number]) Medical Review Prior Functional Status Medical History Reviewed Yes Communication able to make needs known Mobility and Gait pt stated that she is independent with all mobilities and ambulation without AD Activities of Daily Living and IADL's independent with Adl and IADl needs but had pain Social History Household Members spouse Living Arrangements House Number of Floors (Floors) One Floor Number of Stairs To Enter/Railing? no steps to enter Home Environment High Toilet,Walk in Shower, Built-In Shower Seat Home Equipment Front Wheel Walker,Hand Held Shower Employment Status Retired M2 OT-IP Current Condition Start: 01/15/22 10:38 Freq: Status: Active Protocol: Document 01/15/22 09:05 [facility] (Rec: 01/15/22 10:50 [facility] [id number]) Occupational Therapy Current Condition Current Condition Evaluation Date 01/15/22 Treatment Diagnosis s/p L4-5, L5-S1 TLIF Diagnosis Onset Date 01/13/22 Post Operative Precautions Lumbar Precautions Log Roll,No Twisting,Limit Bending,Lifting Restriction of 10 lbs,Gait Belt above Incisional Area M3 OT- IP Subjective and Pain Start: 01/15/22 10:38 Freq: Status: Active Protocol: Document 01/15/22 09:05 [facility] (Rec: 01/15/22 10:50 [facility] [id number]) OT- Subjective Occupational Therapy Visit Type Type Initial Evaluation Visit Start Time 09:05 Visit Stop Time 09:38 Total Visit Minutes 33 Occupational Therapy Visit Comments Patient Comments Pt agreed to work with OT, pt' s present at the end of the session. Patient/Caregiver Goals TO go home OT Pain Assessment Pain When Pain Assessed During Mobility Pain Present Pain Present Pain Reported Location back Intensity 6 M4 OT- IP ADL's Start: 01/15/22 10:38 Freq: Status: Active Protocol: Document 01/15/22 09:05 [facility] (Rec: 01/15/22 10:50 [facility] [id number]) OT [id number] Comments OT Self-Feeding Comments Not at meal time. OT ADL-Grooming General Evaluation Grooming Ability Independent OT ADL-Oral Care General Eval Oral Care Ability Independent Comments Oral Care Comments vc to spit into a cup to best follow her back precautions OT ADL-Dressing General Eval Lower Body Dressing Ability Maximum Assistance Comments OT Dressing Comments Pt states her to assist her and able to show pt LB dressing equipment to assist if pt wanting to get some. OT ADL-Toileting Comments OT Toileting Comments Pt able to comfortably follow her back precautions to wipe by standing Suggested wet one and use of pad at night can be helpful. OT ADL-Bathing Comments OT Bathing Comments Pt insisting to shower at home . M5 OT- IP IADL's Start: 01/15/22 10:38 Freq: Status: Active Protocol: Document 01/15/22 09:05 [facility] (Rec: 01/15/22 10:50 [facility] [id number]) OT-Instrumental Activities of Daily Living Home Safety Awareness Awareness of Need for Assistance at Home Good Awareness Ability to Problem Solve Emergency Able to Problem Solve Situations Home Safety Comments Pt's to be at home to be able to assist pt for all needs as needed. M6 OT- IP Functional Cognition Start: 01/15/22 10:38 Freq: Status: Active Protocol: Document 01/15/22 09:05 [facility] (Rec: 01/15/22 10:50 [facility] [id number]) Cognitive Factors Limiting Selfcare Function Cognitive Ability Level of Alertness Alert Patient Orientation Name,Place,Situation Attention Span Ability Capable of Focused Attention, Capable of Sustained Attention Ability to Follow Commands Able to Follow One Step Commands Memory Description No Deficits Noted Cognitive Comments Cognitive Assessment Comments Pt needing vc for safety to push up from the bed to stand to FWW as has a tendency to grab the FWW to stand. Educated if having to grab the FWW , to have her hold the FWW in place. M7 OT- IP Mobility and Balance Start: 01/15/22 10:38 Freq: Status: Active Protocol: Document 01/15/22 09:05 [facility] (Rec: 01/15/22 10:50 [facility] [id number]) OT- Bed Mobility Assessment Supine to Sit Supine to Sit Assist Contact Guard Assistance Sit to Supine Sit to Supine Assist Contact Guard Assistance OT-Transfer Assessment Sit to and From Stand Sit to and from Stand Contact Guard Assistance Transfers Transfer Ability Standby Assistance Technique Transfer Destination Bed,Chair Transfer Technique Stand Step Pivot Devices Transfer Assistive Devices Gait Belt,Front Wheeled Walker Comments Mobility Comments Pt CGA to stand to FWW . Pt able to get herself up in the high bed as she has a home via hiking her hips up to the bed and able to independently weight shift her hips to get back in the bed. CGA for her legs into the bed. OT- Balance Assessment Sitting Balance and Reactions Static Sitting Balance Ability Good Dynamic Sitting Balance Ability Good Standing Balance and Reactions Static Standing Balance Ability Fair Dynamic Standing Balance Ability Fair M8 OT- IP Objective Assessments Start: 01/15/22 10:38 Freq: Status: Active Protocol: Document 01/15/22 09:05 [facility] (Rec: 01/15/22 10:50 [facility] [id number]) OT-Muscle Tone Assessment Muscle Tone WNL Yes M9 OT- IP Assessment and Plan Start: 01/15/22 10:38 Freq: Status: Active Protocol: Document 01/15/22 09:05 [facility] (Rec: 01/15/22 10:50 [facility] [id number]) OT Summary Assessment and Plan Potential Rehabilitation Potential Excellent Analytic Complexity at Evaluation Low Summary OT Impairments Pain,Functional Mobility, Dressing,Toileting,Bathing, Shower Transfers Progress Towards Goals Progressing Toward Goals Assessment Summary Pt low complexity and main barriers are pain, low bp, and needing assist from lower surfaces. Pt will also need assist for ADL needs as pt now sure if she will get LB dressing equipment and that her is home to assist with all her needs. Pt looking to go home with her when medically stable. Goals Dressing Goal Minimal Assistance Toileting Goal Independent Bathing Goal Independent Toilet Transfer Goal Independent Shower Transfer Goal Independent Days to Meet Goals 2 Frequency of Treatment Frequency Of Treatment Once a Day Treatment Plan OT Treatment Plan ADL Training,Functional Mobility,Patient/Family Education,Discharge Planning Discharge Recommendations OT Discharge Recommendations Home with Assistance Transportation Needs at Discharge Private Vehicle
--- NOTE | 2022-01-15 11:35 | PT.IPTN ---
Current Diagnoses Dural tear (01/13/22) Spondylolisthesis, lumbar region (01/13/22) Spinal stenosis, lumbar region with neurogenic claudication (01/13/22) Arthrodesis status (01/13/22) Surgery Performed Operation Date: 01/13/22 10:15 Actual Procedures p L4-5, L5-S1 TLIF w. posterior instrumentation - Robot - Leslie Artis MD Physical Therapy Treatment Note M2 PT-IP Current Condition Start: 01/14/22 11:21 Freq: NEEDED Status: Active Protocol: Document 01/14/22 09:25 AB (Rec: 01/14/22 11:30 AB [id number]) Physical Therapy Current Condition Current Condition Evaluation Date 01/14/22 Treatment Diagnosis s/p L4-5,L5S1 TLIF; difficulty in walking Onset Date 01/13/22 M3 PT-IP Subjective Start: 01/14/22 11:21 Freq: NEEDED Status: Active Protocol: Document 01/15/22 11:35 AB (Rec: 01/15/22 13:49 AB [id number]) Subjective Physical Therapy Visit Type Type Treatment Note Visit Start Time 11:35 Visit Stop Time 12:05 Total Visit Minutes 30 Number of COPY HOLDER Visits 0 Physical Therapy Visit Comments Patient Comments agreeable to do PT Therapy Pain Assessment Pain When Pain Assessed At Rest Pain Present Pain Present Pain Reported Location back Scale Used incares >10 with mobility Pain Management Techniques Apply Cold,Distraction, Modification of Treatment,Re- positioning,Timing of Activity with Medications M4 PT-IP Mobility and Gait Start: 01/14/22 11:21 Freq: NEEDED Status: Active Protocol: Document 01/15/22 11:35 AB (Rec: 01/15/22 13:49 AB [id number]) PT-Bed Mobility Assessment Rolling Type of Rolling Log Rolling Level of Assist Standby Assistance Supine to Sit Supine to Sit Standby Assistance PT-Transfer Assessment Sit to and From Stand Sit to and from Stand Contact Guard Assistance,1 Person Assistance,Use of Upper Extremities Equipment Transfer Assistive Device Gait Belt,Front Wheeled Walker Orthotic/Prosthetic Devices or Brace: No Transfers Transfer Destination Chair Transfer Technique ambulated Transfer Ability Level of Assist Contact Guard Assistance,1 Person Assistance,Use of Upper Extremities Comments Mobility Comments pt supine in bed. spouse in room. spouse indicated that he had previous back surgery and is aware of precautions and log roll bed mobility. BP in supine: 112/51. pt completed log roll supine to sit SBA. no c/o dizziness in sitting. BP checked after ~ 2 min of sitting on EOB: 119/55 . spouse was able to put safety belt on pt, assisted with sit to stand and ambulation in room using FWW SBA to CGA. pt agreed to sit on the chair for lunch. positioned pt on the chair. call light within reach. BP at end of tx session: 120/50. pt and spouse without any othe concerns. Gait Assessment Gait Gait Assistance Required: Standby Assistance,Contact Guard Assist Distance (Feet) 40 Able to Maintain Weight Bearing Status Yes During Gait Assistive Devices Assistive Device Gait Belt,Front Wheeled Walker Orthotic/Prosthetic Devices or Brace: No Gait Deviations General Gait Pattern Decreased Stride Length, Decreased Feet Clearance, Narrow Based Gait Factors Limiting Gait Function Factors Limiting Gait Function Decreased Activity Tolerance, Decreased Strength,Limited Range of Motion,Pain,Poor Balance M5 PT-IP Objective Assessments Start: 01/14/22 11:21 Freq: NEEDED Status: Active Protocol: Document 01/14/22 09:25 AB (Rec: 01/14/22 11:30 AB [id number]) Orientation Orientation/Cognition Level of Alertness Alert Orientation Name,Place,Situation Safety Awareness Understands Safety Issues Memory Description No Deficits Noted Gross Range of Motion Lower Extremity ROM Assessment Within Functional Limits Strength Lower Extremity Strength Hip 4-/5 Knee 4-/5 Coordination Assessment Gross Coordination Gross Coordination WNL Sensation Assessment Sensation Gross Sensation WNL Muscle Tone Muscle Tone WNL Yes M6 PT-IP Treatment Start: 01/14/22 11:21 Freq: NEEDED Status: Active Protocol: Document 01/15/22 11:35 AB (Rec: 01/15/22 13:49 AB [id number]) Physical Therapy Treatment Education Education Provided Precautions,Safety M7 PT-IP Assessment and Plan Start: 01/14/22 11:21 Freq: NEEDED Status: Active Protocol: Document 01/15/22 11:35 AB (Rec: 01/15/22 13:49 AB [id number]) PT Summary Assessment and Plan Potential Rehabilitation Potential Good Summary Impairments Pain,ROM,Strength,Balance, Coordination,Sensation,Tone, Cognition,Bed Mobility, Transfers,Gait,Activity Tolerance Progress Towards Goals Progressing Toward Goals Assessment Summary caregiver training conducted. spouse was able to assist pt safety with mobility. pt plans to go home today. Goals Bed Mobility Goal Independent Transfer Goal Independent,Front Wheeled Walker Gait Goal Independent,Front Wheel Walker Gait Distance 200 Days to Meet Goals 5 Frequency of Treatment Frequency Of Treatment Twice a Day Treatment Plan Physical Therapy Treatment Plan Bed Mobility Training,Transfer Training,Gait Training, Therapeutic Exercise,Balance Retraining,Post Op Education, Discharge Planning,Hot or Cold Pack,Neuromuscular Re-ed, Coordination Retraining,Manual Therapy Precautions Lumbar Precautions Log Roll,No Twisting,Limit Bending,Lifting Restriction of 10 lbs,Gait Belt above Incisional Area Recommendations To Nursing Amount of Assist Needed 1 Person Assist Discharge Recommendations PT Discharge Recommendations Home with Assistance Transportation Needs at Discharge Private Vehicle
[2022-01-15 13:20] VITALS: BP 110/47; PULSE 80; RESP 14; TEMP 36.3; O2SAT 97
[2022-01-15 14:25] VITALS: BP 112/52; BP 118/52; BP 125/53; PULSE 76; PULSE 78; PULSE 79
--- NOTE | 2022-01-15 15:05 | PC.NURSE ---
IV d/c'd intact. D/c instructions given and understood by Pt and . Pt's belongings accounted for and taken to car. Pt excorted via w/c by Kyle CRAMER. Pt tolerated getting inn car well.
== END 2022-01-15 14:55 | disposition home or self-care (01) | DRG 454 ==
LOC: OR 08:44 → AC 08:49
PROVIDERS: Physician Assistant; Admitting Provider Orthopaedic Surgery Orthopaedic Surgery of the Spine; PCP Internal Medicine; Referring Provider Orthopaedic Surgery Orthopaedic Surgery of the Spine; Visit Provider Orthopaedic Surgery Orthopaedic Surgery of the Spine
PROC: 0SG00AJ Fusion of Lumbar Vertebral Joint with Interbody Fusion Device, Posterior Approach, Anterior Column, Open Approach (ICD-10-PCS; principal; 2022-01-13 10:15)
DX: M43.16 Spondylolisthesis, lumbar region (principal); G97.41 Accidental puncture or laceration of dura during a procedure; M48.062 Spinal stenosis, lumbar region with neurogenic claudication; M43.17 Spondylolisthesis, lumbosacral region; M48.07 Spinal stenosis, lumbosacral region; M54.16 Radiculopathy, lumbar region; R51.9 Headache, unspecified; I95.9 Hypotension, unspecified; Z20.822 Contact with and (suspected) exposure to COVID-19; M47.816 Spondylosis without myelopathy or radiculopathy, lumbar region; M47.817 Spondylosis without myelopathy or radiculopathy, lumbosacral region
CPT/HCPCS: 36415; 72100; 72131; 76000; 85014; 85018; 87635; 94760; 97162; 97165; 97530; 97535; C9803; A9270; C1713; C9290; J0171; J0330; J0690; J1100; J1170; J2250; J2405; J2704; J3010

== ENCOUNTER → 2023-02-24 13:15 | Outpatient (CLI) | payer MEDICARE, SELFPAY ==
[2022-01-13 20:54] VITALS: BMI 27.3
--- NOTE | 2023-02-24 | DI.MRI.S_ITS ---
PROCEDURE: MR CERVICAL SPINE WO CON INDICATIONS: Radiculopathy, cervical region TECHNIQUE: Noncontrast sagittal T1 spin echo and T2 fast spin echo, sagittal STIR, foraminal oblique sagittal T2 fast spin echo, and axial gradient echo or T2 fast spin echo through the cervical spine. COMPARISON: None. FINDINGS: Image quality: Excellent. Alignment and Curvature: Patient is status post anterior fusion and discectomy from C5-C7. There is grade 1 C3 on C4 anterolisthesis. Bone Marrow: Marrow demonstrates normal overall signal. Spinal Cord: Visualized spinal cord has normal size and signal. No cerebellar tonsillar herniation. Paraspinous Soft Tissues: No paravertebral masses. Prevertebral soft tissues are normal in thickness. C2-C3: No canal stenosis. Moderate left foraminal stenosis. No right foraminal stenosis. C3-C4: Anterolisthesis. Effacement of the CSF space. Mild canal stenosis. Moderate right and severe left foraminal stenosis. C4-C5: Moderate disc desiccation and height loss. Effacement of the anterior CSF space. Mild canal stenosis. Severe right and moderate left foraminal stenosis. C5-C6: Postoperative changes. No canal stenosis or foraminal stenosis. C6-C7: Postoperative change. No canal stenosis or foraminal stenosis. C7-T1: Poorly characterized. No canal stenosis. Probable bilateral moderate neural foraminal stenosis. IMPRESSION: 1. Moderate left foraminal stenosis at C2-3 and C4-5, moderate right foraminal stenosis at C3-4. 2. Severe left foraminal stenosis at C3-4 and severe right foraminal stenosis at C4-5. 3. Mild canal stenosis at C3-4. No other canal stenosis or foraminal stenosis of the cervical spine. Dictated by: Laura Bolivar M.D. on 02/24/2023 at 17:08 Approved by: Laura Bolivar M.D. on 02/24/2023 at 17:13
== END ==
PROVIDERS: PCP Internal Medicine; Referring Provider Internal Medicine; Visit Provider Internal Medicine
DX: M54.12 Radiculopathy, cervical region (principal); M48.02 Spinal stenosis, cervical region
CPT/HCPCS: 72141